=== PATIENT | male | born 1995 | race Caucasian/White ===

== ENCOUNTER 2020-03-03 10:06 | Emergency (ER) | payer BC, SELFPAY ==
[2020-03-03 10:10] VITALS: BP 108/56; PULSE 58; RESP 22; TEMP 36.9; O2SAT 98; BMI 24.4
--- NOTE | 2020-03-03 10:20 | ED_ITS ---
[facility] [place] [facility] [place] Clinical Impression: Exposure to COVID-19 virus Disposition: Home, Self-Care Condition on Discharge: Good Instructions: Preventing the Spread of Coronavirus Discharge Instructions Additional Instructions: Current CDC guidelines: Isolate X 7 days with a negative test on day 5 (so you will need to retest Friday) Referrals: Baljit Longo MD [Primary Care Provider] - Time of Disposition: 10:22 Medical Decision Making - Onur Inquiry Pt receiving controlled substance: No Orders (Tests/Meds): ORDERS Category Date Time Status Covid-19 Nasal PCR Sendout P&C Stat Lab 03/03/20 10:09 Ordered [facility] [place] [facility] [place] - General Stated complaint: covid test Time Seen by Provider: 03/03/20 10:20 - History of Present Illness Provider Complaint: Father tested positive for COVID19 yesterday. Was last around his father yesterday. He is currently asymptomatic. Onset (ago): day(s) (1) Relieving factors: none Exacerbating factors: none Associated symptoms: denies other symptoms Treatments prior to arrival: none - Related Data Allergies Allergy/AdvReac Type Severity Reaction Status Date / Time NO KNOWN ALLERGIES Allergy Uncoded 01/28/17 15:03 [facility] History - Hepatitis A Screen Attestation statement:: This patient has been screened for Hepatitis A risk factors. I have reviewed the patient's past medical history: Yes ROS Obtained: Yes All systems reviewed & no additional complaints Physical Exam - General General appearance: alert, in no apparent distress - Head Head exam: normocephalic - Eye Eye exam: Present: PERRL - ENT ENT exam: Present: normal oropharynx - Respiratory Respiratory exam: Present: normal lung sounds bilaterally - Cardiovascular Cardiovascular exam: Present: regular rate, normal rhythm - Neurological Exam Neurological exam: Present: alert, oriented X3 - Psychiatric Psychiatric exam: Present: normal affect, normal mood - Skin Skin exam: Present: warm, dry, intact
[2020-03-03 10:24] VITALS: BP 108/56; PULSE 58; RESP 22; TEMP 36.9; O2SAT 98
[2020-03-04 10:59] LABS: Covid-19 Nasal PCR Sendout P&C NEGATIVE
== END 2020-03-03 10:25 | disposition home or self-care (01) ==
PROVIDERS: Emergency Provider Physician Assistant; PCP Family Medicine
DX: Z20.822 Contact with and (suspected) exposure to COVID-19 (principal)
CPT/HCPCS: 99202; G0463; U0004

== ENCOUNTER 2024-07-24 23:18 | Emergency (ER) | payer SELFPAY ==
--- NOTE | 2024-07-24 23:14 | XR_ITS ---
PROCEDURE INFORMATION: Exam: XR Chest Exam date and time: 07/24/2024 11:41 PM Age: 28 years old Clinical indication: Other: AMS; Additional info: Altered mental status TECHNIQUE: Imaging protocol: Radiologic exam of the chest. Views: 1 view. COMPARISON: No relevant prior studies available. FINDINGS: Lungs: Subtly increased bronchovascular markings. Pleural spaces: Unremarkable. No pleural effusion. No pneumothorax. Heart/Mediastinum: Unremarkable. No cardiomegaly. Bones/joints: Unremarkable. IMPRESSION: No evidence of acute radiographic findings in the chest.
--- NOTE | 2024-07-24 23:14 | ECG_ITS ---
APPROVED REPORT Exam: Resting ECG HR:116 bpm ECG Measurements Heart Rate 116 AXES DC 173 P 55 QRSd 100 QRS 77 QT 320 T 29 QTc 389 Conclusion SINUS TACHYCARDIA INCOMPLETE RIGHT BUNDLE BRANCH BLOCK [90+ ms QRS DURATION, TERMINAL R IN V1/V2, 40+ ms S IN I/aVL/V4/V5/V6] MODERATE ST DEPRESSION [0.05+ mV ST DEPRESSION] No STEMI Electronically signed by : PHIL MONTES, 07/26/2024 03:54:57
--- NOTE | 2024-07-24 23:15 | CT_ITS ---
PROCEDURE INFORMATION: Exam: CT Head Without Contrast Exam date and time: 07/24/2024 11:31 PM Age: 28 years old Clinical indication: Altered mental status/memory loss TECHNIQUE: Imaging protocol: Computed tomography of the head without contrast. Radiation optimization: All CT scans at this facility use at least one of these dose optimization techniques: automated exposure control; mA and/or kV adjustment per patient size (includes targeted exams where dose is matched to clinical indication); or iterative reconstruction. COMPARISON: No relevant prior studies available. FINDINGS: Limitations: The images are degraded due to motion artifacts. Within this limitation: Brain: No acute intra- or extra axial fluid collections are identified. The basal cisterns are patent. No mass effect or midline shift is seen. The [place]-white matter differentiation is normal. Diffuse effacement of the sulci concerning for brain edema. Borderline low-lying cerebellar tonsils. Cerebral ventricles: The ventricles are of normal size, shape, and morphology. Paranasal sinuses: The paranasal sinuses appear grossly clear. Mastoid air cells: The mastoid air cells appear grossly clear. Orbital cavities: The orbits appear normal. Bones: No acute calvarial fracture is identified. Soft tissues: No soft tissue abnormalities identified. Vasculature: There are atherosclerotic calcifications of the carotid siphons and the V4 segments of the vertebral arteries. IMPRESSION: Motion degraded exam. Within this limitation: 1. Finding is concerning for diffuse brain edema. Clinical correlation is recommended. 2. MRI of the brain is recommended for further evaluation of the brain parenchyma.
[2024-07-24] MEDS: droPERidol 5MG/2ML VIAL 5 MG IV (23:16)
--- NOTE | 2024-07-24 23:17 | ED_ITS ---
Discharge Plan Disposition Patient Disposition: Xfer Short-Term Hosp Condition: Fair Prescriptions Prescriptions: No Action cephalexin 500 mg capsule 500 mg PO BID 10 Days Qty: 20 0RF Referrals Follow up/Referrals: Provider,Referral, [Primary Care Provider, Medical] - See instructions Clinical Impressions Clinical Impression: Mild tetrahydrocannabinol (THC) abuse, Cerebral edema Stand Alone Forms Stand Alone Forms: Transfer Record - ED Instructions Patient Instructions: DI for Altered Mental Status Print Language Print Language: Swedish Discharge ED Provider: Ruby Ruff General Adult HPI General Chief complaint: Altered Mental Status Stated complaint: overdose Time Seen by Provider: 07/24/24 23:20 History of Present Illness HPI narrative: 28-year-old male presents to the ER after eating gas station THC Gummies. Unclear how many he took however he and family who are on scene reported to EMS they only know that he took 1. The gummy that he took contains THC B, THC P, HHCO, and delta 8. Patient became anxious and agitated so he requested to go to the hospital. EMS and law enforcement presented with him because he had started to become combative. Patient received Versed and Zofran from EMS due to being combative and having emesis. Reportedly patient occasionally drinks alcohol, unclear if he drank alcohol tonight. Additionally he reports he has no pain but he is disoriented. The package of the gummy provided by law enforcement indicates that someone should only take one third of a gummy at a time before taking anymore, and the patient did not take it like this. Reportedly no other drug use. Related Data Previous Rx's ?Medication ?Instructions ?Recorded cephalexin 500 mg capsule 500 mg PO BID 10 days #20 ca ps 08/14/21 Allergies Allergy/AdvReac Type Severity Reaction Status Date / Time amoxicillin (From Augmentin) Allergy Verified 08/14/21 10:59 clavulanic acid (From Allergy Verified 08/14/21 10:59 Augmentin) [facility] Disclaimer: The information contained in this section may have been updated after the patient was seen, as this information can be updated by other users. Social History Smoking Status: Current every day smoker alcohol intake: never substance use type: denies use current occupational status: employed Travel in the last 8 weeks?: None household members: family housing: house ROS Obtained: Yes Systems reviewed as appropriate & no additional complaints except as documented per HPI Physical Exam General General appearance: alert, in no apparent distress and appears intoxicated Head Head exam: atraumatic and normocephalic Eye Eye exam: Present PERRL and EOMI ENT ENT exam: Present mucous membranes moist Neck Neck exam: Present normal inspection and full ROM Chest Chest inspection: Present symmetric chest wall rise Respiratory Respiratory exam: Present normal lung sounds bilaterally; Absent respiratory distress, wheezes or stridor Cardiovascular Cardiovascular exam: Present regular rate and normal rhythm Abdominal Exam Abdominal exam: Present soft; Absent distention or tenderness Extremities Exam Extremities exam: Present full ROM and normal capillary refill; Absent tenderness or joint swelling Back Exam Back exam: Absent tenderness, CVA tenderness (R) or CVA tenderness (L) Neurological Exam Neurological exam: Present alert; Absent oriented X3 (Oriented only to self, disoriented to location and year) or motor sensory deficit Psychiatric Psychiatric exam: Present normal affect and normal mood Skin Skin exam: Present warm and dry Medical Decision Making Medical Records Medical records reviewed: Yes I reviewed the patient's medical records. Screening: Per USPSTF and CDC recommendations, given the prevalence of disease in our region, it is our hospital?s policy to screen for HIV and viral Hepatitis for all patients aged 18 and over and those with ongoing risk factors. Onur Inquiry Pt receiving controlled substance: No Vital Signs: 07/24/24 23:25 07/25/24 00:00 07/25/24 00:30 Temperature 97.9 F Temperature Source Oral Pulse Rate 84 86 Pulse Rate [Left] 89 Respiratory Rate 14 13 13 Blood Pressure 100/46 L 90/44 L Blood Pressure [Right Arm] 121/63 Blood Pressure Mean [Right Arm] 82 02 Sat by Pulse Oximetry 97 98 98 Oxygen Delivery Method Room Air 07/25/24 01:00 07/25/24 01:30 07/25/24 02:00 Temperature Temperature Source Pulse Rate 89 89 83 Pulse Rate [Left] Respiratory Rate 13 10 L 12 Blood Pressure 104/49 L 109/54 L 97/52 L Blood Pressure [Right Arm] Blood Pressure Mean [Right Arm] 02 Sat by Pulse Oximetry 98 99 100 Oxygen Delivery Method 07/25/24 02:04 Temperature Temperature Source Pulse Rate 78 Pulse Rate [Left] Respiratory Rate 12 Blood Pressure 100/57 L Blood Pressure [Right Arm] Blood Pressure Mean [Right Arm] 02 Sat by Pulse Oximetry 100 Oxygen Delivery Method Lab Data Lab Results 07/24/24 23:13: WBC 9.1, RBC 4.45 L, Hgb 13.8 L, Hct 41.2 L, MCV 92.6, MCH 31.0, MCHC 33.5, RDW 12.6, Plt Count 336, MPV 9.6, Neut % (Auto) 57.9, Lymph % (Auto) 31.7, Citrus % (Auto) 6.2, Eos % (Auto) 2.9, Baso % (Auto) 0.7, Neut # (Auto) 5.3, Lymph # (Auto) 2.9, Citrus # (Auto) 0.6, Eos # (Auto) 0.3, Baso # (Auto) 0.1, Sodium 141, Potassium 4.3, Chloride 108 H, Carbon Dioxide 26, Anion Gap 11.3, B UN 25 H, Creatinine 1.20, Estimated Creat Clear 144, Estimated GFR 73, Est GFR ( Amer) 89, Glucose 165 H, Calcium 9.9, Magnesium 1.8, Total Bilirubin 0.4, AST 29, ALT 28, Alkaline Phosphatase 70, Total Protein 7.2, Albumin 4.5, Globulin 2.7, Albumin/Globulin Ratio 1.7, Plasma/Serum Alcohol < 10, HIV Ag/Ab Combo Qual Negative 07/24/24 23:14: VBG pH 7.29 L, VBG pCO2 47.7, VBG pO2 43.9 H, VBG HCO3 22.2 L, VBG Total CO2 23.7, VBG O2 Saturation 74.7 H, VBG Base Excess -4.4 L, VBG Lactic Acid 3.9 H 07/25/24 00:44: Urine Color Yellow, Urine Appearance Clear, Urine pH 6.5, Ur Specific Seibert 1.025, Urine Protein 2+ A, Urine Glucose (UA) Negative, Urine Ketones Negative, Urine Blood Negative, Urine Nitrate Negative, Urine Bilirubin Negative, Urine Urobilinogen 0.2, Ur Leukocyte Esterase Negative, Urine RBC None, Urine WBC 3-5, Ur Squamous Epith Cells Occasional, Urine Bacteria 2+, Urine Opiates Screen Negative, Urine Methadone Screen Negative, Ur Barbituates Screen Negative, Ur Phencyclidine Scrn Negative, Ur Amphetamines Screen Negative, U Benzodiazepines Scrn Positive H, Urine Cocaine Screen Negative, U Marijuana (THC) Screen Positive H 07/24/24 23:13 07/24/24 23:13 Orders (Tests/Meds): ED MEDICATIONS Discontinued Medications Generic Name Dose Route Start Last Admin Trade Name Saima PRN Reason Stop Dose Admin Droperidol 5 mg 07/24/24 23:11 07/24/24 23:16 Droperidol 5mg/2ml Vial IV 07/24/24 23:12 5 mg ONCE ONE Administration Multivitamins 10 ml/ Thiamine 1,015 mls @ 500 mls/hr 07/24/24 23:12 07/25/24 00:00 HCl 100 mg/ Magnesium Sulfate IV 07/25/24 01:13 500 mls/hr 2 gm/ Lactated Ringer's .Q2H2M ONE Administration ORDERS Category Date Time Status CT head/brain wo con Stat Cat Scan 07/24/24 23:15 Completed XR chest portable Stat Exams 07/24/24 23:14 Completed Complete Blood Count Auto Diff Stat Lab 07/24/24 23:13 Completed Comprehensive Metabolic Panel Stat Lab 07/24/24 23:13 Completed Drug Screen,Urine Stat Lab 07/25/24 00:44 Completed Ethyl Alcohol Stat Lab 07/24/24 23:13 Completed HIV Combo Stat Lab 07/24/24 23:13 Completed Hepatitis C Ab Qual. W/ RFX Stat Lab 07/24/24 23:13 Received Magnesium Stat Lab 07/24/24 23:13 Completed Urinalysis and Microscopic Stat Lab 07/25/24 00:44 Completed Urine Culture Stat Micro 07/25/24 00:44 Received Venous Blood Gas Stat RT 07/24/24 23:14 Completed Medical Decision Narrative: In summary, this 28-year-old male presents to the emergency department today with agitation after taking delta 8 THC Gummies. On initial evaluation patient is hemodynamically stable, afebrile, mostly cooperative but becomes intermittently agitated, GCS 14 secondary to disorientation but is following commands, abdominal exam benign, cardiopulmonary exam benign, no neurologic deficits but in the setting of altered mental status will obtain head CT to ensure no acute intracranial abnormality. Differential diagnosis includes but is not limited to intoxication, intracranial bleed or injury, hypoxia, hypercarbia, electrolyte abnormality, coingestion, among others. Based on these concerns, I ordered serum labs, chest x-ray, cardiac workup, CT head, urine studies. ECG personally interpreted demonstrates sinus tachycardia, rate 116, normal axis, normal OK and QTc, no STEMI. Patient became agitated again despite receiving Versed from EMS, received rally pack and droperidol for treatment. Droperidol was administered because the patient was a danger to himself and others. After receiving this he was resting more comfortably, GCS 9 after being chemically restrained. Placed on nasal cannula. Labs personally reviewed demonstrate no leukocytosis, mild anemia which is nonspecific and nonactionable, platelets normal, VBG with pH 7.29 with normal pCO2, mildly elevated lactic, prerenal azotemia present with otherwise nonactionable CMP, UA negative for findings of infection, UDS positive for benzos which had been administered by EMS as well as THC which is a component of the gas station gummy that he took. EtOH negative. XR personally interpreted demonstrates no acute intrathoracic abnormality, see radiology read for final interpretation. CT imaging personally interpreted demonstrate no intracranial bleed, mass, or midline shift. See radiology read for final interpretation. Radiology read comments on possible diffuse brain edema. Patient did not have any focal neurologic deficits upon arrival to the ER aside from being mildly disoriented and agitated while being intoxicated. He currently is a GCS 9 after being chemically restrained. Pupils are 6 mm and reactive. He is protecting his airway. I do not believe he requires intubation at this time but do believe he requires higher level of care for MRI and follow-up of this finding. I reached out to and at [address] Bruno in the transfer center who reached out to neurosurgery and I spoke with Dr. Bhatt. We discussed this case and these findings. Neurosurgery after reviewing the images and the case believes the findings are probably related to what the patient ingested and is not likely to be an acute surgical emergency. He did recommend transfer to for follow-up and neurology evaluation. Patient was graciously accepted to as an ER to ER transfer under Dr. Bruno. Head of bed is elevated. I do not believe patient requires hypertonic saline or other interventions at this time since this is likely intoxication related according to neurosurgery Immediately prior to transfer patient was reassessed by me. He is now GCS 12. He is no longer on nasal cannula. He is protecting his airway. He remains hemodynamically stable with no focal neurologic deficits aside from disorientation. He is localizing in all extremities but not yet following commands. He has metabolized the chemical restraining medications well and is demonstrating signs of improvement. He is appropriate for transfer. Patient was transferred by ALS ambulance in stable condition to . Critical Care Critical Care Time Critical Care Time: No
[2024-07-24 23:25] VITALS: BP 121/63; PULSE 89; RESP 14; TEMP 36.6; O2SAT 97; BMI 30.8
[2024-07-24 23:39] LABS: VBG Base Excess -4.4 mmol/L (-2.4-2.3); VBG HCO3 22.2 mmol/L (23-30); VBG Oxygen Saturation 74.7 % (50-70); VBG PCO2 47.7 mmol/L (35-51); VBG PH 7.29 mmol/L (7.31-7.41); VBG PO2 43.9 mmol/L (28-40); VBG Total CO2 23.7 mmol/L (23-27)
[2024-07-24 23:43] LABS: Lactate Venous 3.9 mmol/L (0.4-2.0)
[2024-07-24 23:49] LABS: Basophils # 0.1 K/mm3 (0-0.2); Basophils % 0.7 % (0.1-2.0); Eosinophils # 0.3 Kmm3 (0.0-0.4); Eosinophils % 2.9 % (0.1-12.0); Hematocrit 41.2 % (42.0-52.0); Hemoglobin 13.8 g/dL (14.1-18.0); Immature Granulocytes # 0.05 10^3uL; Immature Granulocytes % 0.6 %; Lymphocytes # 2.9 K/mm3 (0.7-4.5); Lymphocytes % 31.7 % (10-50); Mean Corpuscular HGB Conc 33.5 g/dL (31.8-35.4); Mean Corpuscular Volume 92.6 fl (80-94); Mean Platelet Volume 9.6 fl (7.4-10.4); Monocytes # 0.6 K/mm3 (0.1-1.0); Monocytes % 6.2 % (1.7-9.3); Neutrophils # 5.3 K/mm3 (1.8-7.8); Neutrophils % 57.9 % (37.0-80.0); Nucleated Red Blood Cells # 0 10^3/uL; Nucleated Red Blood Cells % 0 %; Platelet Count 336 K/mm3 (142-424); Red Blood Count 4.45 M/mm3 (4.60-6.20); Red Cell Distribution Width 12.6 % (11.5-17.5); Red Cell Distribution Width-SD 42.7 fL; White Blood Count 9.1 K/mm3 (4.8-10.8)
[2024-07-24 23:54] LABS: Albumin Level 4.5 g/dl (3.5-5.0); Chloride 108 mmol/L (98-107)
[2024-07-24 23:55] LABS: Potassium 4.3 mmoL/L (3.5-5.1); Sodium 141 mmol/L (136-145)
[2024-07-24 23:57] LABS: Alanine Aminotransferase 28 U/L (12-78); Albumin/Globulin Ratio 1.7 (1.1-1.8); Alkaline Phosphatase 70 U/L (38-126); Anion Gap 11.3 mEq/L (5-15); Aspartate Amino Transferase 29 U/L (17-59); Bilirubin,Total 0.4 mg/dl (0.2-1.3); Blood Urea Nitrogen 25 mg/dl (9-20); Carbon Dioxide 26 mmol/L (22.0-30.0); Creatinine Clearance Estimated 144 mL/min (50-200); Estimated Glomerular Filt Rate 73 ml/min (>60); GFR (African American) 89 ML/MIN (>60); Globulin 2.7 g/dL (1.3-3.2); Total Protein,Serum 7.2 g/dl (6.3-8.2)
[2024-07-24 23:58] LABS: Calcium 9.9 mg/dl (8.4-10.2); Glucose 165 mg/dl (74-100); Magnesium 1.8 mg/dl (1.6-2.3)
[2024-07-25] VITALS (9 sets, daily range): BP systolic 90–109; BP diastolic 44–57; PULSE 72–89; RESP 10–18; TEMP 36.4–36.9; O2SAT 98–100
[2024-07-25] LABS: Ethyl Alcohol < 10 mg/dl (0-10)
[2024-07-25] MEDS: MVI, ADULT NO.1 WITH VIT K 10 ML, THIAMINE HCL 100 MG, MAGNESIUM SULFATE 2 GM in LACTAT... 500 ML IV
[2024-07-25 00:39] LABS: HIV Combo NEGATIVE (Negative)
[2024-07-25 00:48] LABS: Microscopic, Urine URINE MICROSCOPIC (MICROSCOPIC)
[2024-07-25 00:54] LABS: Appearance,Urine CLEAR (Clear); Bilirubin,Urine Negative (Negative); Blood, Urine Negative (Negative); Color,Urine YELLOW (Yellow); Glucose,Urine (UA) Negative (Negative); Ketones,Urine Negative (Negative); Leukocyte Esterase,Urine Negative (Negative); Nitrate,Urine Negative (Negative); PH,Urine 6.5 (5.0-8.5); Protein,Urine 2+ (Negative); Specific Gravity, Urine 1.025 (1.005-1.030); Urobilinogen,Urine 0.2 EU/dl (0.2)
--- NOTE | 2024-07-25 01:00 | PC.NURSE ---
Called [facility] for a transfer said they would call back
[2024-07-25 01:03] LABS: Barbiturates Screen,Urine Negative ng/ml (<200)
[2024-07-25 01:04] LABS: Benzodiazepines Screen,Urine Positive ng/ml (<200)
[2024-07-25 01:05] LABS: Amphetamine/Metha Screen,Urine Negative ng/ml (<1000); Cannabinoid Screen,Urine Positive ng/ml (<50)
[2024-07-25 01:06] LABS: Cocaine Screen,Urine Negative ng/ml (<300); Methadone Screen,Urine Negative ng/ml (<300)
[2024-07-25 01:07] LABS: Opiate Screen,Urine Negative ng/ml (<300)
[2024-07-25 01:08] LABS: Phencyclidine Screen,Urine Negative ng/ml (<25)
[2024-07-25 01:14] LABS: Bacteria,Urine 2+ /lpf; Squamous Epithelial Cell,Urine Occasional #/hpf (0-5)
[2024-07-25 03:44] LABS: Reflex Lactic Add Lactic Reflex
[2024-07-25 05:31] LABS: Hepatitis C Ab Qual. W/ RFX NEGATIVE (Negative)
== END 2024-07-25 03:00 | disposition short-term general hospital (02) ==
PROVIDERS: Emergency Provider Emergency Medicine
DX: G93.6 Cerebral edema (principal); R45.1 Restlessness and agitation; F12.929 Cannabis use, unspecified with intoxication, unspecified; R00.0 Tachycardia, unspecified; Z11.59 Encounter for screening for other viral diseases; Z11.4 Encounter for screening for human immunodeficiency virus [HIV]
CPT/HCPCS: 70450; 71045; 80053; 80074; 80307; 80320; 81001; 82803; 83735; 85025; 87086; 87389; 93005; 96365; 96366; 96375; 99285; J1790; J3411; J3475; J7120